=== PATIENT | male | born 1995 | race Asian ===

== ENCOUNTER 2017-09-02 10:06 | Emergency (ER) | payer MEDICAID ==
[~2017-09-02] VITALS: Ht 172.7 cm; Wt 70.5 kg
[2017-09-02 11:00] VITALS: BP 124/68
[2017-09-02] MEDS ORDERED: KETOROLAC TROMETHAMINE 60 MG/2 ML VIAL IM ONE (11:15)
== END 2017-09-02 12:09 | disposition home or self-care (01) ==
LOC: EMS 10:07
DX: R51 Headache (principal)
CPT/HCPCS: 96372; 99283; J1885